=== PATIENT | male | born 1930 | race Caucasian/White ===

== ENCOUNTER 2016-11-28 10:19 | Observation (INO) | payer MEDICARE ==
[~2016-11-28] VITALS: Ht 170.2 cm; Wt 116.3 kg
[~2016-11-28 10:19] MED LIST: AMLODIPINE5 MG PO; ATENOLOL50 MG OR; INVANZ1 GM IJ; ISOSORB MONO120 MG PO; ISOSORB MONO60 M1 OR; PLAVIX75 MG OR; PRAVASTATIN40 MG PO; PREDNISONE10 MG PO; RANEXA1000 MG OR; TAMSULOSIN HCL0.4 MG PO; VERAPAMIL120 MG OR; ZITHROMAX500 MG PO
[2016-11-28] MEDS ORDERED: METO50TA52 PO (10:38)
[2016-11-28] MEDS ORDERED: NITROSTAT0.4 MG SL (10:39)
[2016-11-28 10:46] LABS: HEMATOCRIT 39.8 % (39.0-50.0); HEMOGLOBIN 13.2 g/dl (14.0-18.0); IMMATURE GRANULOCYTES 0.4 % (0.0-1.0); MEAN CELL VOLUME 95.4 fL CALC (80.0-100.0); MEAN CORPUSCULAR HGB 31.7 pG CALC (26.0-32.0); MEAN CORPUSCULAR HGB CONC 33.2 g/L CALC (32.0-36.0); NEUT# 5.6 thou/uL (1.82-7.42); RED BLOOD COUNT 4.17 mill/uL (4.70-6.10); RED CELL DISTRI WIDTH 13.2 % (11.5-15.5)
[2016-11-28 11:03] LABS: ALBUMIN 4.2 g/dL (3.2-5.0); ALKALINE PHOSPHATASE 96 u/l (38-126); AMYLASE 56 u/l (30-110); ANION GAP 17 (6-22 (CALC)); BILIRUBIN, TOTAL 0.6 mg/dL (0.0-1.4); BUN 31 mg/dL (8-23); BUN/CREATININE RATIO 24 (12-20 (CALC)); CARBON DIOXIDE 26 mmol/l (22-30); CHLORIDE 102 mmol/l (95-108); CREATININE 1.3 mg/dL (0.7-1.3); GFR 52 ML/MIN (>=60 (CALC)); GFR FOR AFR.AMER. > 60 ML/MIN (>=60 (CALC)); GLUCOSE 103 mg/dL (82-115); LIPASE 72 u/l (23-300); POTASSIUM 4.5 mmol/l (3.5-5.1); SGOT/AST 22 u/l (19-48); SGPT/ALT 15 u/l (11-66); SODIUM 141 mmol/l (137-146); TOTAL PROTEIN 8.2 g/dL (6.3-8.2)
[2016-11-28 11:15] LABS: MYOGLOBIN 52 ng/mL (0 - 121)
[2016-11-28 12:02] LABS: PROTHROMBIN TIME 10.7 SECONDS (9.0-12.5)
[2016-11-28 13:48] VITALS: BP 117/60
[2016-11-28 19:20] VITALS: BP 112/78
[2016-11-29] VITALS: BP 102/77
[2016-11-29 00:59] LABS: URINE BILIRUBIN - DIPSTICK NEGATIVE (NEGATIVE); URINE BLOOD DIPSTICK LARGE (NEGATIVE); URINE CLARITY CLEAR; URINE COLOR YELLOW; URINE GLUCOSE - DIPSTICK NEGATIVE (NEGATIVE); URINE KETONE NEGATIVE (NEGATIVE); URINE LEUK ESTERASE MODERATE (Negative); URINE NITRITE - DIPSTICK NEGATIVE (Negative); URINE PROTEIN - DIPSTICK NEGATIVE (NEG-TRACE); URINE UROBILINOGEN - DIPSTICK 0.2 E.U./dL (0.2)
[2016-11-29 01:23] LABS: URINE WBC 50-100 WBC/hpf (0-5)
[2016-11-29 03:00] VITALS: BP 128/90
[2016-11-29 06:57] LABS: HEMATOCRIT 41.9 % (39.0-50.0); HEMOGLOBIN 13.8 g/dl (14.0-18.0); IMMATURE GRANULOCYTES 0.5 % (0.0-1.0); MEAN CELL VOLUME 94.6 fL CALC (80.0-100.0); MEAN CORPUSCULAR HGB 31.2 pG CALC (26.0-32.0); MEAN CORPUSCULAR HGB CONC 32.9 g/L CALC (32.0-36.0); NEUT# 4.65 thou/uL (1.82-7.42); RED BLOOD COUNT 4.43 mill/uL (4.70-6.10); RED CELL DISTRI WIDTH 13.2 % (11.5-15.5)
[2016-11-29 07:16] LABS: ANION GAP 19 (6-22 (CALC)); BUN 29 mg/dL (8-23); BUN/CREATININE RATIO 23 (12-20 (CALC)); CALCIUM 9.3 mg/dL (8.4-10.2); CARBON DIOXIDE 25 mmol/l (22-30); CHLORIDE 101 mmol/l (95-108); CREATININE 1.3 mg/dL (0.7-1.3); GFR 52 ML/MIN (>=60 (CALC)); GFR FOR AFR.AMER. > 60 ML/MIN (>=60 (CALC)); GLUCOSE 97 mg/dL (82-115); POTASSIUM 4.7 mmol/l (3.5-5.1); SODIUM 141 mmol/l (137-146)
[2016-11-29 09:22] VITALS: BP 114/68
[2016-11-29 09:26] VITALS: BP 114/68
[2016-11-29] MEDS ORDERED: ASPIRIN EC81 MG PO (09:31)
[2016-11-29] MEDS ORDERED: PROTONIX40 MG PO (09:31)
[2016-11-29] MEDS ORDERED: METO50TA52 PO (09:31)
[2016-11-29] MEDS ORDERED: NITROSTAT0.4 MG SL (09:31)
== END 2016-11-29 10:48 | disposition home or self-care (01) ==
LOC: ENPENDDIS → ED 10:19 → ED-I 12:23 → ED 12:36 → MS2 12:37
PROVIDERS: Emergency Medicine; ADMIT Internal Medicine; ATTEND Internal Medicine
DX: I25.118 Atherosclerotic heart disease of native coronary artery with other forms of angina pectoris (principal); I10 Essential (primary) hypertension; J44.9 Chronic obstructive pulmonary disease, unspecified; M10.9 Gout, unspecified; Z85.46 Personal history of malignant neoplasm of prostate; Z87.891 Personal history of nicotine dependence; Z86.73 Personal history of transient ischemic attack (TIA), and cerebral infarction without residual deficits; Z95.1 Presence of aortocoronary bypass graft; Z87.440 Personal history of urinary (tract) infections
CPT/HCPCS: J1650